=== PATIENT | male | born 1970 | race Caucasian/White ===

== ENCOUNTER → 2023-09-04 06:23 | Day surgery (SDC) | payer BC, SELFPAY | LOC: GI 06:23 | PROVIDERS: ATTENDING PHYSICIAN Specialist | DX: Z12.11 Encounter for screening for malignant neoplasm of colon (principal); Z86.010 Personal history of colon polyps; K57.30 Diverticulosis of large intestine without perforation or abscess without bleeding; K63.5 Polyp of colon | CPT/HCPCS: 45380; 88305 ==

== ENCOUNTER → 2024-03-03 09:59 | Outpatient (REF) | payer BC, SELFPAY | LOC: HWRAD 09:59 | PROVIDERS: ATTENDING PHYSICIAN Physician Assistant Surgical; FAMILY PHYSICIAN Family Medicine | DX: M25.511 Pain in right shoulder (principal) | CPT/HCPCS: 73030 ==

== ENCOUNTER 2024-06-28 03:00 | Emergency (ER) | payer BC, SELFPAY ==
--- NOTE | 2024-06-29 03:08 | ED.GENMED ---
History of Present Illness
General
Source: patient
Exam Limitations: none
Nursing documentation reviewed up to this point in time: agreed with
History of Present Illness
History of Present Illness:
54-year-old male presents with possible foreign body in his right ear. He states that the tip of his hearing aid might of come off in his ear. He denies any other injury.
Past History
Past History
ED Past Medical History: GERD, HTN and Other (Diverticulitis)
ED Past Surgical History: Orthopedic and Other (Hernia repair)
Social History
Tobacco: Non-smoker
Alcohol: Occasional
Drug: None
Personal:
Living: with family
Employment: Employed (Sales)
Family History
Family History: Other (Noncontributory)
Review of Systems
Review of Systems
Allergies reviewed?: Yes
All Other Systems: Not applicable
Constitutional: Reports no symptoms
Phy Exam
General Physical Exam
General Presentation: well appearing
General age: appears stated age
General Skin: warm
General Habitus: normal
General Mental: alert
ENT Exam
ENT Exam: EOMI, TM's normal (No evidence of obvious foreign body in the ear.) and neck supple
Pulmonary Exam
Pulmonary Exam: no respiratory distress, no wheezing and no cough
Gastrointestinal Exam
Gastrointestinal Exam: normal bowel sounds and non tender
Neurological Exam
Neurological Exam: alert and oriented x3
Musculoskeletal Exam
Musculoskeletal Exam: full ROM and no edema
Skin Exam
Skin Exam: normal color and warm/dry
Psychiatric Exam
Psychiatric Exam: normal mood/affect
*Critical Care Note
Total Time (30-74mins, 75-104mins- exclusive of procedures): Not Applicable
ED Attending Note
-
Portions of this chart may have been created with voice recognition software.� Occasional wrong word or��sound alike� substitutions may have occurred due to the inherent limitations of voice recognition software.
Discharge Plan
Departure
Patient Disposition: Home (Routine Discharge)
Patient with high blood pressure during this ER visit?: Yes
Condition: Good
Discharge Problem:
Possible foreign body in the ear
Prescriptions:
No Action
esomeprazole magnesium [Nexium] 40 MG capsule,delayed release(DR/EC)
40 mg PO DAILY
oxycodone-acetaminophen 5 MG/325 MG tablet
1 tab PO Q4HPRN PRN (Reason: pain)
cephalexin 500 MG capsule
500 mg PO BID Qty: 14 0RF
Referrals:
Wilton Bae MD [Active] -
Activity Restrictions/Additional Instructions:
It was a pleasure meeting you and taking part in your care. We hope for your continued healing and wellness.
Please read discharge instructions in their entirety. However, they are for general education and may not describe your exact diagnosis at discharge. Information on your ER visit and medical conditions were discussed with you along with appropriate
follow up information...
If indicated, please take your medications as instructed and indicated on discharge paperwork.
Please schedule a follow up appointment as directed. Call to schedule an appointment
Please return to the emergency department with ANY change in, persisting, or worsening of symptoms. If any of your symptoms do not improve, or persist, or become more severe within 6-12 hours, please return to the emergency department for further
care.
Please return to the emergency department if you develop a headache, neck pain/stiffness, fever greater than 100.4F, chest pain, shortness of breath, persistent nausea, vomiting, slurred speech, difficulty walking, numbness/tingling, weakness, signs
of infection or any other symptoms that are worrisome to you.
If you have any questions or concerns please do not hesitate to call the Hospital at or E-mail me directly at [email or web address]
Discharge Date and Time
Discharge Date/Time: 06/28/24 06:30
Print Language: AMHARIC
== END 2024-06-28 06:30 | disposition home or self-care (01) ==
LOC: EMR 03:00
PROVIDERS: EMERGENCY PHYSICIAN Student in an Organized Health Care Education/Training Program
DX: Z04.89 Encounter for examination and observation for other specified reasons (principal); K21.9 Gastro-esophageal reflux disease without esophagitis; I10 Essential (primary) hypertension
CPT/HCPCS: 99282

== ENCOUNTER → 2025-03-03 07:58 | Outpatient (REF) | payer BC, SELFPAY | LOC: EMG 07:58 | PROVIDERS: ATTENDING PHYSICIAN Psychiatry & Neurology Neurology; FAMILY PHYSICIAN Family Medicine | DX: R20.0 Anesthesia of skin (principal) | CPT/HCPCS: 95886; 95909 ==

== ENCOUNTER 2025-06-22 13:57 | Emergency (ER) | payer BC, SELFPAY ==
[2025-06-22 14:04] VITALS: BP 178/112
--- NOTE | 2025-06-22 14:12 | ED.GENMED ---
History of Present Illness
General
Chief Complaint: Blood Pressure Problem
Source: patient
Exam Limitations: none
Time Seen by Provider: 06/22/25 14:11
Nursing documentation reviewed up to this point in time: agreed with
History of Present Illness
History of Present Illness:
Patient is a 55-year-old male presents to the ER for evaluation. Patient has a history of hypertension and is on carvedilol amlodipine and losartan. He also has a torn left labrum and rotator cuff and is scheduled for surgery in 2 months. He has
been having increased pain in the shoulder and saw his automotive painter today and his blood pressure was found to be elevated at 178/113. In addition he has had some shortness of breath with exertion for the past several days. He reports
he is not sure if this is related to his lack of exercise. He has not exercised because of the shoulder in the past 5 months. He also feels some bloating and discomfort in his upper abdomen at times and feels that it radiates up to his shoulder.
He denies any actual chest pain. He denies any symptoms presently.
Patient does not smoke cigarettes no prior history of DVT PE denies any lower extremity swelling.
Past History
Past History
ED Past Medical History: GERD, HTN and Other (Diverticulitis)
ED Past Surgical History: Orthopedic and Other (Hernia repair)
Social History
Tobacco: Non-smoker
Alcohol: Occasional
Drug: None
Personal:
Living: with family
Employment: Employed (Sales)
Family History
Family History: Other (Noncontributory)
Phy Exam
General Physical Exam
General Presentation: no apparent distress
General age: appears stated age
General Skin: warm and dry
General Habitus: normal
General Mental: alert
General Hydration: appears well hydrated
Cardiovascular Exam
Cardiovascular Exam: regular rate/rhythm, no murmur and normal peripheral pulses
Pulmonary Exam
Pulmonary Exam: lungs clear and no respiratory distress
Neurological Exam
Neurological Exam: alert and oriented x3
Musculoskeletal Exam
Musculoskeletal Exam: full ROM
Skin Exam
Skin Exam: normal color and warm/dry
Psychiatric Exam
Psychiatric Exam: normal mood/affect
Course
Orders/Labs/Results
Orders:
Orders
06/22/25 13:58
EKG [Electrocardiogram (*1)] Urgent
Reason for Study: Chest Pain
06/22/25 13:59
EKG- Treatment ONCE
06/22/25 14:13
IV Insert/Care/Rem.- Treatment PRN
06/22/25 14:14
Cardiac Monitoring- Treatment ONCE
CR Chest - 2 Views Urgent
Comment:
Reason For Exam: cp
06/22/25 14:38
Complete Blood Count/With Diff Urgent
Comprehensive Metabolic Panel Urgent
Lipase Urgent
Comment: ADD ON
Troponin I Urgent
06/22/25 15:40
Add On- LAB Urgent
Tests Added?: lipase
Abnormal Lab Results
06/22/25
14:38
MCH 31.3 H pg
(27.0-31.0)
Monocytes % 10.7 H %
(1.7-9.3)
Sodium 133 L mmol/L
(135-145)
ALT 98 H U/L
(0-50)
06/22/25 14:38
06/22/25 14:38
Vital Signs
Initial and Last Documented VS:
Initial Vital Signs
Temp Pulse Resp BP Pulse Ox
97.8 F 59 16 178/112 98
06/22/25 14:04 06/22/25 14:04 06/22/25 14:04 06/22/25 14:04 06/22/25 14:04
Last Documented Vital Signs
Temp Pulse Resp BP Pulse Ox
97.8 F 61 10 172/83 98
06/22/25 14:04 06/22/25 16:00 06/22/25 16:00 06/22/25 16:00 06/22/25 16:00
Coin Purse Assembler consulted with Physician
Coin Purse Assembler consulted with physician?: Yes
Name of Physician Consulted: Zay
MDM/Problems Addressed
MDM/Problems Addressed:
As documented patient is a 55-year-old male who went to his automotive painter for shoulder pain and his blood pressure was elevated and sent here to the ER. He has felt mildly short breath for the past several days asymptomatic here. At
times he complains of upper abdominal bloating and feels that it radiates to his chest. He has no chest pain here. He has negative cardiac enzyme no acute finding on EKG. His lungs are clear his x-ray is negative. He is very well-appearing no
prior history of DVT PE no risk factors. He has nontachycardic nonhypoxic nontachypneic. His labs are reviewed ALT minimally elevated. Does drink alcohol 4 days a week we did discuss that this may be related and to decrease alcohol use and
follow-up with family doctor. Will place on the chest pain hotline. He has been seen by cardiology in the past for management of blood pressure.
I did review patient's stress echo which was done in 2022 and normal as well as his regular echo.
*Radiology
Radiology exam reviewed: preliminary read by ED provider and radiology read reviewed
*Pulse Oximetry
SaO2: 98
Oxygen Mode of Delivery: Room air
Patient hypoxic: no
*EKG
Interpreted by ED Provider?: Yes
Interpretation: normal
Heart Rate: 50
Rate: bradycardiac
Rhythm: sinus
*Critical Care Note
Total Time (30-74mins, 75-104mins- exclusive of procedures): Not Applicable
ED Attending Note
-
Portions of this chart may have been created with voice recognition software.� Occasional wrong word or��sound alike� substitutions may have occurred due to the inherent limitations of voice recognition software.
Discharge Plan
Departure
Patient Disposition: Home (Routine Discharge)
Date of Disposition: 06/22/25
Time of Disposition: 16:21
Patient with high blood pressure during this ER visit?: Yes
Condition: Good
Covid-19: Not Applicable
Discharge Problem:
Dyspnea
Instructions: High Blood Pressure (DC), Shortness of breath in adults - ED (DC), Chest Pain CBC Follow Up, BLOOD PRESSURE
Prescriptions:
No Action
esomeprazole magnesium [Nexium] 40 MG capsule,delayed release(DR/EC)
40 mg PO DAILY
oxycodone-acetaminophen 5 MG/325 MG tablet
1 tab PO Q4HPRN PRN (Reason: pain)
cephalexin 500 MG capsule
500 mg PO BID Qty: 14 0RF
Referrals:
Aj Jaeger MD [Family Provider, Family Practice]
Activity Restrictions/Additional Instructions:
You are placed on the chest pain hotline you should receive a phone call from the cardiology practice in the next several days if you do not please call them to schedule an appointment. Return if any worsening of symptoms. Also as discussed your
liver function blood work was minimally elevated please decrease alcohol use and follow-up with your family doctor for reevaluation and repeat labs. Return if any worsening of symptoms.
Interventions
Interventions:
*Risk Screen - Suicide Last Done: 06/22/25 14:04
*General Assessment Last Done: 06/22/25 14:26
*Neglect/Abuse Screening Last Done: 06/22/25 14:26
*ED- Fall Risk Assessment Last Done: 06/22/25 14:26
*ED COVID-19 Vaccine History Last Done: 06/22/25 14:26
*ED Influenza Vaccine History Last Done: 06/22/25 14:26
ED- Cardiac Assessment Last Done: 06/22/25 14:45
ED- Neurological Assessment Last Done: 06/22/25 14:45
ED- Pulmonary Assessment Last Done: 06/22/25 14:45
Discharge Date and Time
Print Language: BAHRAINI
[2025-06-22 14:25] VITALS: BMI 29.5
[2025-06-22 14:31] VITALS: BP 126/77
[2025-06-22 14:53] LABS: Hematocrit 42.3 % (39.0-52.0); Hemoglobin 15.3 g/dL (13.0-18.0); Mean Corp Hgb Conc. 36.2 g/dL (33.0-37.0); Mean Corpuscular Volume 86.5 fL (80.0-94.0); Nucleated Red Blood Cells % 0 % (-); Platelet Count 196 10^3/uL (130-400); Red Cell Dist. Width 11.5 % (11.5-14.5)
[2025-06-22 15:05] LABS: ALT (SGPT) 98 U/L (0-50); AST (SGOT) 52 U/L (17-59); Albumin 4.6 g/dl (3.5-5.0); Alkaline Phosphatase 63 U/L (38-126); Blood Urea Nitrogen 15 mg/dl (9-20); Calcium 9.6 mg/dl (8.4-10.2); Carbon Dioxide 27 mmol/L (22-30); Chloride 102 mmol/L (98-107); Estimated Creatinine Clearance 102 ml/min; Glucose 96 mg/dl (70-99); Potassium 4.1 mmol/L (3.5-5.1); Sodium 133 mmol/L (135-145); Total Protein 7.3 g/dl (6.3-8.2); eGFR > 60.00
[2025-06-22 15:16] VITALS: BP 155/96
[2025-06-22 15:16] LABS: Troponin I < 0.012 ng/ml
[2025-06-22 15:52] LABS: Lipase 139 U/L (23-300)
[2025-06-22 16:00] VITALS: BP 172/83
== END 2025-06-22 16:48 | disposition home or self-care (01) ==
LOC: EMR 13:57
PROVIDERS: Nurse Practitioner; EMERGENCY PHYSICIAN Student in an Organized Health Care Education/Training Program; FAMILY PHYSICIAN Family Medicine
DX: R06.00 Dyspnea, unspecified (principal); I10 Essential (primary) hypertension; K21.9 Gastro-esophageal reflux disease without esophagitis
CPT/HCPCS: 99284; 71046; 80053; 83690; 84484; 85025; 93005

== ENCOUNTER → 2025-07-08 15:11 | Outpatient (REF) | payer BC, SELFPAY | LOC: HWRCS 15:11 | PROVIDERS: ATTENDING PHYSICIAN Internal Medicine Cardiovascular Disease; FAMILY PHYSICIAN Nurse Practitioner Family | DX: R07.2 Precordial pain (principal) | CPT/HCPCS: 93306 ==

== ENCOUNTER → 2025-07-13 07:32 | Outpatient (REF) | payer BC, SELFPAY | LOC: HWRCS 07:32 | PROVIDERS: ATTENDING PHYSICIAN Internal Medicine Cardiovascular Disease; FAMILY PHYSICIAN Nurse Practitioner Family | DX: R07.2 Precordial pain (principal) | CPT/HCPCS: 78452; 93017; A9500 ==